=== PATIENT | male | born 1965 ===

== ENCOUNTER 2021-03-12 22:02 | Emergency (ER) | payer SELFPAY ==
[~2021-03-12] VITALS: Ht 185.4 cm; Wt 87.0 kg
[2021-03-12 22:09] VITALS: BP 144/86
[2021-03-12] MEDS ORDERED: FURO-152 MT (23:03)
== END 2021-03-12 23:03 | disposition home or self-care (01) ==
LOC: ER 22:02
DX: N50.89 Other specified disorders of the male genital organs (principal); Z59.00 Homelessness unspecified; I10 Essential (primary) hypertension; Z88.0 Allergy status to penicillin
CPT/HCPCS: 99283